=== PATIENT | male | born 2000 | race Caucasian/White ===

== ENCOUNTER → 2024-04-13 | Outpatient (CLI) | payer OTHER ==
--- NOTE | 2024-04-13 13:06 | CA ---
Exercise Stress Test Report Name: Casimiro Treviño Exam Date: 04/13/2024 11:22 Exam Location: [facility] Ht (in): 72 Wt (lb): 260 BSA: 2.38 Ordering Phys: Annabelle Mckeon MD Referring Phys: Megan Alcantar [facility] Technologist: Kaushik Salgado Age: 24 Gender: M : 2000 Procedure CPT: Indications: Z13.6 CARDIOVASC SCREENING ICD-10 Codes: Patient History: Medications: FLUOXETINE,,,,, Meds past 24 hrs: Pretest Chest Pain: STRESS TEST Regan Protocol Exercise Duration (min:sec): 10:[address] Depressions (mm): Angina Score: Hale Score: Resting HR (bpm): 95 Peak HR (bpm): 182 Resting BP (mmHg): 139 / 85 Peak BP (mmHg): 199 / 57 MPHR: 196 Target HR: 167 % MPHR: 93 METS: 12.1 Total Dose: Peak Dose: Atropine: Double Product: 10642 BP Response: Stress Termination: Reached target heart rate Stress Symptoms: NO SYMPTOMS Stress Summary: ECG ANALYSIS Resting ECG: Stress ECG: CONCLUSIONS Patient underwent exercise stress EKG with a Regan protocol treadmill stress test. Patient exercised into Stage 3 for a total of 10 minutes and 29 seconds reaching a total of 12.1 METS. Patient's maximum heart rate was 182 which represented 92% age-predicted maximum heart rate. Stress EKG findings: At baseline patient's EKG showed normal sinus rhythm, normal axis, no significant ST-T wave abnormalities. At peak exercise, EKG showed no significant change from baseline. Conclusions: 1. Normal EKG response to exercise without evidence of inducible ischemia. 2.. Good exercise capacity. Dr. Irving Ocampo DO (Electronically Signed) Final Date: 13 Apr 2024 13:05
== END | disposition home or self-care (01) ==
LOC: RADNMMAIN 10:38
PROVIDERS: ATTEND Family Medicine
DX: Z13.6 Encounter for screening for cardiovascular disorders (principal)
CPT/HCPCS: 93017

== ENCOUNTER → 2024-09-07 | Outpatient (CLI) | payer OTHER ==
--- NOTE | 2024-09-07 17:16 | CT ---
EXAMINATION TYPE: CT abdomen pelvis wo con DATE OF EXAM: 09/07/2024 COMPARISON: None INDICATION: Nausea and vomiting x 3.5 weeks DLP: 1429.2 mGycm, Automated exposure control for dose reduction was used. CONTRAST: 0 mL of Isovue 300. Study performed without Oral Contrast TECHNIQUE: Axial images were obtained from above the diaphragm to the pubic rami in the axial plane a t 5 mm thick sections. Reconstructed images are reviewed on the computer in the coronal plane. FINDINGS: Limited CT sections are obtained the lung bases. The lung bases are clear. CT ABDOMEN: Liver: Normal Spleen: Normal Pancreas: Normal Adrenal glands: The adrenal glands are normal. Gallbladder: Normal Kidneys: No masses are evident. No hydronephrosis is present. No cysts are present. No renal stone s are evident. No hydroureter evident. Aorta: Normal Inferior vena cava: Normal. CT PELVIS: Loops of bowel within the abdomen and pelvis are normal. There are a few scattered sigmoid diverticu li. No dilated loops of bowel are evident. Normal fecal debris is within the colon. Appendix: Normal as visualized. Urinary bladder: Normal. Genitourinary structures: Prostate is normal Osseous structures: No suspicious lytic or sclerotic lesions. IMPRESSION: 1. No suspicious acute changes CT abdomen and pelvis [facility], Workstation: [id number], 09/07/2024 5:14 PM
== END | disposition home or self-care (01) ==
LOC: RADCTMAIN 15:23
PROVIDERS: ATTEND Registered Nurse
DX: R11.2 Nausea with vomiting, unspecified (principal)
CPT/HCPCS: 74176